=== PATIENT | female | born 1970 | race Caucasian/White ===

== ENCOUNTER 2017-06-24 05:55 | Day surgery (SDC) | payer OTHER ==
[2017-06-24] MEDS ORDERED: Ondansetron 4 MG/2 ML SDV IV ONE (05:56)
[2017-06-24] MEDS ORDERED: Bupivacaine 0.5% 10 ML SDV INJECT ONE ×3 (05:56→09:12)
[2017-06-24] MEDS ORDERED: Propofol 200 MG/20 ML SDV IV ONE (05:56)
[2017-06-24] MEDS ORDERED: fentaNYL 100 MCG/2 ML SDV IV ONE (05:56)
[2017-06-24] MEDS ORDERED: Dexamethasone 4 MG/ML SDV IV ONE (05:56)
[2017-06-24] MEDS ORDERED: Rocuronium 50 MG/5 ML Vial IV ONE (05:56)
[2017-06-24] MEDS ORDERED: Lactated Ringers 1,000 ML IV ONE (05:56)
[2017-06-24] MEDS ORDERED: Ketorolac 30 MG/ML SDV IVPUSH ONE ×2 (05:56→15:56)
[2017-06-24] MEDS ORDERED: Lidocaine 1% 30 ML SDV INJECT ONE ×3 (05:56→09:12)
[2017-06-24] MEDS ORDERED: Midazolam 1 MG/ML 2 ML SDV IV ONE (05:56)
[2017-06-24] MEDS ORDERED: Lactated Ringers 1,000 ML IV SCH (06:30)
[2017-06-24] MEDS ORDERED: Bupivacaine 0.5% 10 ML SDV ONE (07:08)
[2017-06-24] MEDS ORDERED: Lidocaine 1% 30 ML SDV ONE (07:08)
[2017-06-24] MEDS ORDERED: Clindamycin Phosphate 600 MG in Sodium Chloride 0.9% 100 ML IV ONE (07:15)
[2017-06-24] MEDS ORDERED: Ondansetron 4 MG/2 ML SDV ONE (07:16)
[2017-06-24] MEDS ORDERED: Midazolam 1 MG/ML 2 ML SDV ONE (07:16)
[2017-06-24] MEDS ORDERED: Lidocaine 2% Jelly 5 ML Tube ONE (07:16)
[2017-06-24] MEDS ORDERED: fentaNYL 100 MCG/2 ML SDV ONE (07:16)
[2017-06-24] MEDS ORDERED: Neostigmine Methylsulfate 10 MG/10 ML MDV ONE (07:16)
[2017-06-24] MEDS ORDERED: Propofol 200 MG/20 ML SDV ONE (07:17)
[2017-06-24] MEDS ORDERED: Atropine 0.4 MG/ML SDV ONE (07:17)
[2017-06-24] MEDS ORDERED: Glycopyrrolate 0.2 MG/ML 2 ML SDV ONE (07:17)
[2017-06-24] MEDS ORDERED: Rocuronium 50 MG/5 ML Vial ONE (07:18)
[2017-06-24] MEDS ORDERED: Succinylcholine 200 MG/10 ML MDV ONE (07:18)
[2017-06-24] MEDS ORDERED: Dexamethasone 4 MG/ML SDV ONE (07:19)
[2017-06-24] MEDS ORDERED: Clindamycin Phosphate 600 MG/4 ML SDV ONE (07:22)
[2017-06-24] MEDS ORDERED: Sodium Chloride 0.9% 100 ML ONE (07:22)
--- NOTE | 2017-06-24 07:32 | PCM.SN ---
- Free Text/Narrative Note: 06/24/17 0700 preop [id number] history and physical reviewed along with allergies and medications cervical leep procedure in past no history of complications with anesthesia heart regular rhythm lungs clear npo asa 1 mallampati 2 plan ga this along with risks goals alternatives explained to patient and accepted
[2017-06-24] MEDS ORDERED: Ketorolac 30 MG/ML SDV ONE ×2 (09:51→16:09)
[2017-06-24] MEDS ORDERED: HYDROmorphone 1 MG/ML Syringe IVPUSH ONE ×3 (10:03→11:14)
[2017-06-24] MEDS ORDERED: HYDROmorphone 1 MG/ML Syringe ONE (10:09)
[2017-06-24] MEDS ORDERED: Acetaminophen/oxyCODONE 325-5 MG Tab PO PRN (10:23)
--- NOTE | 2017-06-24 11:30 | PCM.SN ---
- Free Text/Narrative Note: 06/24/17 1130 postop patient recovered well from ga drinking denies nausea pain fairly controlled no apparent complications with anesthesia
[2017-06-24] MEDS ORDERED: Cyclobenzaprine 10 MG Tab PO ONE ×2 (12:02→13:17)
[2017-06-24] MEDS ORDERED: Baclofen 10 MG Tab PO ONE (15:10)
--- NOTE | 2017-06-24 16:12 | PCM.OPNOTE ---
- General Post-Op/Procedure Note Date of Surgery/Procedure: 06/24/17 Operative Procedure(s): Right achilles tendon rupture repair Pre Op Diagnosis: RIght achilles tendon rupture Post-Op Diagnosis: blanca Anesthesia Technique: General ET Tube Primary Surgeon: Marilyn Payan Anesthesia Provider: Fer Edward EBL in mLs: 5 Complications: none Condition: Good Free Text/Narrative:: Intake & Output 06/24/17 06/24/17 06/24/17 06:59 14:59 22:59 Intake Total 990 Balance 990 Pt tolerated procedure well and was transported to pacu with vss and vascular status intact to right LE. TT 68 mins. Well padded L&U splint applied with foot in approx 30 degrees of PF.
[2017-06-24 16:18] VITALS: BP 120/58
--- NOTE | 2017-06-24 20:53 | OR ---
DATE: 06/24/2017 PREOPERATIVE DIAGNOSIS: Right Achilles tendon rupture. POSTOPERATIVE DIAGNOSIS: Right Achilles tendon rupture. PROCEDURE PERFORMED: Right Achilles tendon rupture repair. ANESTHESIA: General with preoperative local block with a mixture of 1% lidocaine plain and 0.5% Marcaine plain, 10 mL. TOURNIQUET TIME: 60 minutes of pneumatic thigh tourniquet. ESTIMATED BLOOD LOSS: Minimal. SPECIMEN: None. COMPLICATIONS: None. INDICATIONS: Aimee is a 46-year-old female, who presents with right Achilles tendon injury. She states that last June 15, she was doing a conga line at a wedding dance and felt like she got kicked in the Achilles tendon. She immediately fell to the ground and had pain to that area. She did ice and elevate the area and it did get better. She still has swelling to the area. She presented to my office with wedge shoes on because that felt better than a flat shoe. We did get an MRI that showed complete rupture of the Achilles tendon with inflammation, at area 5 cm proximal to the insertion site. We discussed both the risks and benefits of nonoperative versus operative treatment of the Achilles tendon rupture. She elects to have surgical repair of the tendon. The patient voiced good understanding of the proposed procedure and possible complications and elects to have surgery at this time. DESCRIPTION OF THE PROCEDURE: The patient was taken to the operating room, lying in the supine position. The anesthesia was provided at this time and then she was placed into a prone position. After adequate anesthesia induction as described above, the right foot and ankle were prepped and draped in the usual sterile fashion. A pneumatic thigh tourniquet was inflated to 250 mmHg. Attention was then directed to the Achilles tendon area just medial to the tendon, where an approximately 15 cm linear incision was made. Sharp and blunt dissection were performed down to the level of the Achilles tendon sheath. Care was taken to retract all neurovascular bundles. The sheath was incised and tagged for later. The tendon rupture was visualized. The proximal portion had retracted somewhat up the leg. The frayed devitalized ends of the tendons were cut on both the proximal and distal portions down to good healthy tendon. An 0 Ethibond suture was then used to make a Krackow stitch in both the proximal and distal portion of the tendon rupture. The tendon ends were then sutured together using 0 Ethibond with the foot in approximately 20 degrees of plantar flexion. This was compared to the contralateral side and was noted to be just slightly more plantar flexed. The repair was also augmented with 2-0 Vicryl. The ankle was put through dorsiflexion range of motion and the repair was noted to be stable. The area was then irrigated with copious amounts of sterile saline. The tendon sheath was closed with 3-0 Vicryl. Deep skin closure was completed with 3-0 Vicryl and skin closure was completed with 4-0 nylon. The area was then dressed with Xeroform to the incision site. The area was then covered with a gauze, Webril, and a well-padded L and U splint with the foot in approximately 30 degrees of plantar flexion. The patient tolerated anesthesia and the procedure well and was transported to recovery room with vital signs stable and vascular status intact as noted by immediate hyperemia to all digits upon deflation of the thigh tourniquet. The patient was then discharged home when she met hospital discharge requirements. [facility] /[id number]
== END 2017-06-24 16:50 | disposition home or self-care (01) ==
LOC: DL.SDS 05:55
PROVIDERS: ATTEND Podiatrist
DX: S86.011A Strain of right Achilles tendon, initial encounter (principal); Z88.0 Allergy status to penicillin; Z98.890 Other specified postprocedural states; Z68.27 Body mass index [BMI] 27.0-27.9, adult
CPT/HCPCS: 27650; A9270; J1100; J1170; J1885; J2250; J2405; J2704; J3010; J7050; J7120; C1713; S0077

== ENCOUNTER 2018-10-12 01:31 | Emergency (ER) | payer OTHER ==
[2018-10-12] MEDS ORDERED: Sodium Chloride 0.9% 1,000 ML IV ONE (01:56)
[2018-10-12] MEDS ORDERED: Ondansetron 4 MG/2 ML SDV IV ONE (01:56)
--- NOTE | 2018-10-12 02:08 | EDM.PDOC ---
ED HPI GENERAL MEDICAL PROBLEM - General Chief Complaint: Gastrointestinal Problem Stated Complaint: BÁRBARA DEUTSCH [id number] Time Seen by Provider: 10/12/18 02:10 Source of Information: Reports: Patient History Limitations: Reports: No Limitations - History of Present Illness INITIAL COMMENTS - FREE TEXT/NARRATIVE: This 47 yo female patient reports to the ED with right upper quadrant abdominal pain that radiates to her back and right shoulder. The patient reports her symptoms started last night at about 2230 and she has been vomiting since that time. The patient reports she had a gallbladder ultrasound on 10/06/18 and was told that her gallbladder was "full of stones". The patient is supposed to have a consult with a surgeon coming up, but nothing has been scheduled at this time. The patient reports she has been having similar symptoms intermittently for the past year. Onset: Today Duration: Constant Location: Reports: Abdomen (RUQ) Quality: Reports: Sharp, Stabbing Severity: Severe Improves with: Reports: None Worsens with: Reports: None Context: Reports: Other Associated Symptoms: Reports: Nausea/Vomiting, Other Right Abdominal Pain Score (Numeric/FACES): 10 - Related Data Allergies Allergy/AdvReac Type Severity Reaction Status Date / Time Penicillins Allergy Shortness Verified 10/12/18 01:51 of Breath Home Meds: Home Meds Ibuprofen 200 mg PO BID 06/21/17 [History] Naproxen Sodium [Aleve] 220 mg PO BID 06/21/17 [History] Triamcinolone Acetonide [Triamcinolone Acetonide Lotion] 60 ml TOP BID 06/21/17 [History] Past Medical History HEENT History: Reports: Impaired Vision Cardiovascular History: Reports: High Cholesterol Respiratory History: Reports: None Gastrointestinal History: Reports: Other (See Below) Other Gastrointestinal History: gallstones Genitourinary History: Reports: None [employer]TER History: Reports: Fibroids, Musculoskeletal History: Reports: Fracture, Other (See Below) Other Musculoskeletal History: FRACTURE RIGHT FOOT; RIGHT ACHILLES TENDON RUPTURE Neurological History: Reports: Head Trauma, Migraines, Other (See Below) Other Neuro History: HEAD TRAUMA IN 7TH GRADE Psychiatric History: Reports: None Endocrine/Metabolic History: Reports: None Hematologic History: Reports: None Immunologic History: Reports: None Oncologic (Cancer) History: Reports: None Dermatologic History: Reports: None - Infectious Disease History Infectious Disease History: Reports: Chicken Pox, Other (See Below) Other Infectious Disease History: MONO - Past Surgical History Head Surgeries/Procedures: Reports: None HEENT Surgical History: Reports: None Cardiovascular Surgical History: Reports: None Respiratory Surgical History: Reports: None GI Surgical History: Reports: None Female Surgical History: Reports: Breast Biopsy, D&C, Other (See Below) Other Female Surgeries/Procedures: UTERINE FIBROID REMOVAL Endocrine Surgical History: Reports: None Neurological Surgical History: Reports: None Musculoskeletal Surgical History: Reports: None Oncologic Surgical History: Reports: Biopsy of Breast Dermatological Surgical History: Reports: None Social & Family History - Family History Family Medical History: Noncontributory - Tobacco Use Smoking Status *Q: Never Smoker - Caffeine Use Caffeine Use: Reports: Coffee, Soda Other Caffeine Use: HAS NOT USED COFFEE SINCE FEBRUARY - Recreational Drug Use Recreational Drug Use: No ED ROS GENERAL - Review of Systems Review Of Systems: ROS reveals no pertinent complaints other than HPI. ED EXAM, GI/ABD - Physical Exam Exam: See Below Exam Limited By: No Limitations General Appearance: Alert, WD/WN, No Apparent Distress Eyes: Bilateral: Normal Appearance, EOMI Ears: Normal External Exam, Normal Canal, Hearing Grossly Normal, Normal TMs Nose: Normal Inspection, Normal Mucosa, No Blood Throat/Mouth: Normal Inspection, Normal Lips, Normal Teeth, Normal Gums, Normal Oropharynx, Normal Voice, No Airway Compromise Head: Atraumatic, Normocephalic Neck: Normal Inspection, Supple, Non-Tender, Full Range of Motion Respiratory/Chest: No Respiratory Distress, Lungs Clear, Normal Breath Sounds, No Accessory Muscle Use, Chest Non-Tender Cardiovascular: Normal Peripheral Pulses, Regular Rate, Rhythm, No Edema, No Gallop, No JVD, No Murmur, No Rub GI/Abdominal Exam: Normal Bowel Sounds, No Organomegaly, No Distention, No Abnormal Bruit, No Mass, Pelvis Stable, Tender (RUQ) (Female) Exam: Deferred Rectal (Female) Exam: Deferred Back Exam: Normal Inspection, Full Range of Motion, NT Extremities: Normal Inspection, Normal Range of Motion, Non-Tender, Normal Capillary Refill, No Pedal Edema Neurological: Alert, Oriented, CN II-XII Intact, Normal Cognition, Normal Gait, Normal Reflexes, No Motor/Sensory Deficits Psychiatric: Normal Affect, Normal Mood Skin Exam: Warm, Dry, Intact, Normal Color, No Rash Lymphatic: No Adenopathy Course - Vital Signs Last Recorded V/S: Last Vital Signs Temp 36.5 C 10/12/18 02:41 Pulse 90 10/12/18 02:41 Resp 18 10/12/18 02:41 BP 130/76 10/12/18 03:30 Pulse Ox 95 10/12/18 03:22 - Orders/Labs/Meds Orders: Active Orders 24 hr Category Date Time Status HYDROmorphone [Dilaudid] Med 10/12/18 04:31 Once 0.5 mg IVPUSH ONETIME ONE Labs: Laboratory Tests 10/12/18 10/12/18 10/12/18 Range/Units 02:00 02:00 02:00 WBC 12.0 H (5.0-10.0) 10^3/uL RBC 4.49 (4.2-5.4) 10^6/uL Hgb 14.2 (12.0-16.0) g/dL Hct 40.8 (37.0-47.0) % MCV 90.9 (80-100) fL MCH 31.6 (27.0-34.0) pg MCHC 34.8 (33.0-35.0) g/dL Plt Count 260 (150-450) 10^3/uL Neut % (Auto) 81.4 H (42.2-75.2) % Lymph % (Auto) 13.3 L (20.5-50.1) % Laurel % (Auto) 4.5 (2-8) % Eos % (Auto) 0.5 L (1.0-3.0) % Baso % (Auto) 0.3 (0.0-1.0) % Sodium 137 (135-145) mmol/L Potassium 3.5 L (3.6-5.0) mmol/L Chloride 102 (101-111) mmol/L Carbon Dioxide 23.0 (21.0-31.0) mmol/L Anion Gap 15.5 BUN 10 (7-18) mg/dL Creatinine 0.8 (0.6-1.3) mg/dL Est Cr Clr Drug Dosing 85.81 mL/min Estimated GFR (MDRD) > 60 BUN/Creatinine Ratio 12.50 Glucose 121 H (74-105) mg/dL Calcium 8.8 (8.4-10.2) mg/dl Magnesium 1.9 (1.8-2.5) mg/dL Total Bilirubin 0.8 (0.2-1.0) mg/dL AST 23 (10-42) IU/L ALT 11 (10-60) IU/L Alkaline Phosphatase 43 (42-121) IU/L Total Protein 7.1 (6.7-8.2) g/dl Albumin 4.1 (3.2-5.5) g/dl Globulin 3.0 Albumin/Globulin Ratio 1.37 Amylase 75 (28-100) U/L Lipase 32 (22-51) U/L Meds: Medications Discontinued Medications Generic Name Dose Route Start Last Admin Trade Name Freq PRN Reason Stop Dose Admin Hydromorphone HCl 0.5 mg 10/12/18 02:11 10/12/18 02:14 Dilaudid IVPUSH 10/12/18 02:12 0.5 mg ONETIME ONE Administration Hydromorphone HCl 0.5 mg 10/12/18 03:47 10/12/18 03:53 Dilaudid IVPUSH 10/12/18 03:48 0.5 mg ONETIME ONE Administration Sodium Chloride 1,000 mls @ 999 mls/hr 10/12/18 01:56 10/12/18 02:04 Normal Saline IV 10/12/18 02:56 999 mls/hr .BOLUS ONE Administration Iopamidol 75 ml 10/12/18 02:09 10/12/18 02:20 Isovue-300 (61%) IVPUSH 10/12/18 02:10 75 ml ONETIME ONE Administration Metoclopramide HCl 10 mg 10/12/18 02:17 10/12/18 02:20 Reglan IVPUSH 10/12/18 02:18 10 mg ONETIME ONE Administration Ondansetron HCl 4 mg 10/12/18 01:56 10/12/18 02:03 Zofran IV 10/12/18 01:57 4 mg ONETIME ONE Administration Departure - Departure Time of Disposition: 04:31 Disposition: DC/Tfer to Acute Hospital 02 Condition: Fair Clinical Impression: Cholelithiases Qualifiers: Cholelithiasis location: gallbladder Cholecystitis presence: without cholecystitis Biliary obstruction: without biliary obstruction Qualified Code(s) : K80.20 - Calculus of gallbladder without cholecystitis without obstruction Abdominal pain Qualifiers: Abdominal location: right upper quadrant Qualified Code(s): R10.11 - Right upper quadrant pain Nausea & vomiting Qualifiers: Vomiting type: unspecified Vomiting Intractability: intractable Qualified Code( s): R11.2 - Nausea with vomiting, unspecified - Discharge Information *PRESCRIPTION DRUG MONITORING PROGRAM REVIEWED*: Not Applicable *COPY OF PRESCRIPTION DRUG MONITORING REPORT IN PATIENT KD: Not Applicable Forms: Interfacility Transfer EMTALA Care Plan Goals: Discussed the patient's history, examination, lab and CT results with Dr. Germain. Dr. Germain accepted the patient for continued evaluation and management as an inpatient at [facility] in [place]. The patient will be transported by [facility]. - My Orders Last 24 Hours: My Active Orders 10/12/18 04:31 HYDROmorphone [Dilaudid] 0.5 mg IVPUSH ONETIME ONE - Assessment/Plan Last 24 Hours: My Active Orders 10/12/18 04:31 HYDROmorphone [Dilaudid] 0.5 mg IVPUSH ONETIME ONE
[2018-10-12] MEDS ORDERED: Iopamidol 612 MG/ML 75 ML Bottle IVPUSH ONE (02:09)
[2018-10-12] MEDS ORDERED: HYDROmorphone 1 MG/ML Syringe IVPUSH ONE ×3 (02:11→04:31)
[2018-10-12] MEDS ORDERED: Metoclopramide 10 MG/2 ML SDV IVPUSH ONE (02:17)
[2018-10-12 02:28] LABS: ANION GAP 15.5; CHLORIDE,CL 102 mmol/L (101-111); SODIUM,NA 137 mmol/L (135-145)
[2018-10-12 04:34] VITALS: BP 120/66
[2018-10-12] MEDS ORDERED: Sodium Chloride 0.9% 1,000 ML IV SCH (04:35)
== END 2018-10-12 05:09 ==
LOC: DL.ED 01:31
DX: K80.20 Calculus of gallbladder without cholecystitis without obstruction (principal); R11.2 Nausea with vomiting, unspecified; Z88.0 Allergy status to penicillin
CPT/HCPCS: 36415; 74177; 80053; 82150; 83690; 83735; 85025; 96361; 96374; 96375; 96376; 99285; J1170; J2405; J2765; J7030; Q9967

== ENCOUNTER 2022-01-30 10:55 | Emergency (ER) | payer OTHER ==
[2022-01-30] MEDS ORDERED: Aspirin 81 MG Tab.Chew PO ONE (11:11)
[2022-01-30 11:37] VITALS: BP 146/92; PULSE 97
[2022-01-30 12:14] LABS: ANION GAP 13.9 mEq/L (7-13); CHLORIDE,CL 103 mmol/L (98-107); SODIUM,NA 139 mmol/L (136-145)
== END 2022-01-30 14:52 | disposition home or self-care (01) ==
LOC: DL.ED 10:55
DX: R07.9 Chest pain, unspecified (principal); E78.00 Pure hypercholesterolemia, unspecified; Z88.0 Allergy status to penicillin
CPT/HCPCS: 36415; 71045; 80053; 83605; 84484; 85025; 87040; 93005; 93010; 99283; 99285-25; A9270-GY

== ENCOUNTER 2025-06-10 14:54 | Emergency (ER) | payer OTHER ==
[2025-06-10] MEDS ORDERED: Sodium Chloride 0.9% 10 ML Syringe FLUSH PRN (15:13)
[2025-06-10 15:19] LABS: BASOPHILS PERCENT AUTO 0.5 % (0.0-1.0); EOSINOPHILS PERCENT AUTO 1.0 % (1.0-3.0); LYMPHOCYTES PERCENT AUTO 33.0 % (20.5-50.1); MONOCYTES PERCENT AUTO 6.3 % (2-8); NEUTROPHILS PERCENT AUTO 59.2 % (42.2-75.2); PLATELET COUNT,PLT 291 10^3/uL (150-450); RED BLOOD CELL COUNT 4.94 10^6/uL (4.2-5.4); WHITE BLOOD CELL COUNT,WBC 9.2 10^3/uL (5.0-10.0)
[2025-06-10] MEDS: Ondansetron 4 MG/2 ML SDV IVPUSH ONE (15:22)
[2025-06-10 15:36] LABS: A/G RATIO 1.1; ALANINE AMINOTRANSFERASE,ALT 22.0 U/L (14-59); ASPARTATE AMNIOTRANSFERASE,AST 17.0 U/L (15-37); BILIRUBIN TOTAL 0.7 mg/dL (0.2-1.0); BLOOD UREA NITROGEN,BUN 15.0 mg/dL (7-18); CARBON DIOXIDE,CO2 27.0 mmol/L (21-32); CHLORIDE,CL 104.0 mmol/L (98-107); CREATININE 0.71 mg/dL (0.55-1.02); EST CRCL DRUG DOSING (CG) 79.61 mL/min; ESTIMATED GFR 100.0 mL/min (>=60); GLUCOSE RANDOM 116.0 mg/dL (70-99); POTASSIUM,K 4.0 mmol/L (3.5-5.1); PROTEIN TOTAL,TP 7.8 g/dL (6.4-8.2); SODIUM,NA 143.0 mmol/L (136-145)
[2025-06-10 15:41] LABS: LACTIC ACID 1.7 mmol/L (0.4-2.0)
[2025-06-10 16:18] LABS: APPEARANCE,URINE CLOUDY (CLEAR); GLUCOSE,URINE NEGATIVE (NEGATIVE); OCCULT BLOOD,URINE LARGE (NEGATIVE)
[2025-06-10 16:26] LABS: EPITHELIAL CELLS,URINE FEW /HPF (NOT SEEN)
[2025-06-10] MEDS: Ketorolac 30 MG/ML SDV IVPUSH ONE (16:45)
[2025-06-10 17:00] VITALS: BP 152/93; PULSE 90
== END 2025-06-10 17:05 | disposition home or self-care (01) ==
LOC: DL.ED 14:54
DX: N20.0 Calculus of kidney (principal); Z90.49 Acquired absence of other specified parts of digestive tract; Z90.710 Acquired absence of both cervix and uterus; Z88.0 Allergy status to penicillin; Z79.899 Other long term (current) drug therapy
CPT/HCPCS: 36415; 74176; 80053; 81001; 83605; 83735; 85025; 86140; 96361; 96374; 96375; 99283; 99284; J1885; J2405; J7030; J1171